=== PATIENT | female | born 1950 | race Caucasian/White ===

== ENCOUNTER → 2016-10-23 | Outpatient (CLI) | payer BC | LOC: ECHO 12:30 | DX: R06.09 Other forms of dyspnea (principal); R60.9 Edema, unspecified; F17.200 Nicotine dependence, unspecified, uncomplicated; I10 Essential (primary) hypertension; I34.0 Nonrheumatic mitral (valve) insufficiency | CPT/HCPCS: ECHO; 93306 ==

== ENCOUNTER → 2020-06-09 | Outpatient (CLI) | payer BC ==
[~2020-06-09] MED LIST: ASPIRIN EC81 MG PO; ATORVASTATIN CA20 MG PO; AUGMENTIN 875-1 EACH PO; BACTRIM DS TAB1 EACH PO; BENTYL 10MG CAP10 MG PO; BRILINTA 90 MG90 MG PO; CEFUROXIME500 MG PO; COLACE 100MG C100 MG PO; CRESTOR20 MG PO; CYCLOBENZAPRINE10 MG PO; FLAGYL500 MG PO; FLONASE 0.05% N16 GM; FLORASTOR250 MG PO; GABAPENTIN300 MG PO; KLONOPIN1 MG PO; LEVAQUIN500 MG PO; LEVOCETIRIZINE D5 MG PO; LEXAPRO20 MG PO; LINZESS72 MCG PO; LISINOPRIL5 MG PO; LOPRESSOR 25 MG25 MG PO; LORTAB 7.5-3251 EACH PO; MACROBID 100 M100 MG PO; OMNICEF 300 MG300 MG PO; ONDANSETRON ODT4 MG SL; PHENERGAN 25 MG25 M1 PO; PRILOSEC OTC20 MG PO; PROTONIX40 MG PO; PYRIDIUM200 MG PO; SINGULAIR10 MG PO; TRAZODONE HCL100 MG PO; VAGIFEM10 MCG VG; VENTOLIN HFA 66.7 GM INH; ZANAFLEX4 MG PO; ZANTAC150 MG PO; ZOFRAN ODT 4 MG4 MG SL; ZOFRAN4 MG PO
== END ==
LOC: LAB 10:39
PROVIDERS: Internal Medicine
DX: N18.32 Chronic kidney disease, stage 3b (principal); E78.5 Hyperlipidemia, unspecified
CPT/HCPCS: 36415; 80053; 80061; 82570; 84100; 84156

== ENCOUNTER → 2021-05-31 | Outpatient (CLI) | payer MEDICARE | LOC: KOH-I 13:05 | DX: M25.561 Pain in right knee (principal) | CPT/HCPCS: 73562 ==

== ENCOUNTER → 2021-08-08 | Outpatient (CLI) | payer MEDICARE | LOC: HEART 5 15:00 | DX: R60.0 Localized edema (principal); I08.1 Rheumatic disorders of both mitral and tricuspid valves; I27.20 Pulmonary hypertension, unspecified | CPT/HCPCS: 93306 ==

== ENCOUNTER → 2021-11-07 | Outpatient (CLI) | payer MEDICARE | LOC: HEART 5 08:06 | DX: I25.10 Atherosclerotic heart disease of native coronary artery without angina pectoris (principal); I42.9 Cardiomyopathy, unspecified; I10 Essential (primary) hypertension; R06.02 Shortness of breath; I25.2 Old myocardial infarction | CPT/HCPCS: 78452; A9502; J2785 ==